=== PATIENT | female | born 1990 | race Caucasian/White ===

== ENCOUNTER 2021-04-11 09:34 | Emergency (ER) | payer OTHER, SELFPAY ==
[2021-04-11 09:50] VITALS: BP 139/80; PULSE 88; RESP 16; TEMP 36.8; O2SAT 100
--- NOTE | 2021-04-11 10:01 | ED.URI ---
HPI - URI/Sore Throat General Chief Complaint: Upper Respiratory Infection Stated Complaint: blisters back of mouth,throat is tender Time Seen by Provider: 04/11/21 09:55 Source: patient, RN notes reviewed and old records reviewed Mode of arrival: ambulatory Limitations: no limitations History of Present Illness HPI Narrative: 30-year-old female who presents to [facility] with complaints of 2 to 3-day duration of sore throat and headaches. Patient states that she had COVID in July and has had some residual headache issues and has had increase in asthma symptoms also. Patient states that she had headache pain increase for the past 2-3 days along with sore throat and decrease appetite. Patient states that she had tonsils removed due to strep and has not had for about 5 years. Patient denies any ear pain, sinus congestion or drainage, denies any known fever, chills, or sweats. MD elicited complaint: sore throat Pertinent past history: asthma, seasonal allergies and other (previous strep) Onset (ago): day(s) (2-3 days) Consistency: progressively worsening Severity: moderate Pain scale (0-10): 6 Able to tolerate fluids by mouth: Yes Exacerbating factors: swallowing Relieving factors: nothing Associated symptoms: headache, sore throat and other (appetitie decreased) Treatments prior to arrival: other (lidocaine spray) Related Data Home Medications Medication Instructions Recorded Confirmed albuterol sulfate [ProAir 90 mcg INHALATION DIRECTED 04/11/21 04/11/21 RespiClick] omeprazole 20 mg PO DAILY 04/11/21 04/11/21 Allergies Allergy/AdvReac Type Severity Reaction Status Date / Time Penicillins Allergy Intermediate Hives Verified 04/11/21 09:52 amoxicillin Allergy Unknown Rash Verified 04/11/21 09:52 egg Allergy Unknown Rash Verified 04/11/21 09:52 Review of Systems Review of Systems: Narrative: CONSTITUTIONAL: Denies fever, chills, or sweats. EYES: Denies visual changes, redness, or discharge. ENT: Denies rhinorrhea, congestion, positive sore throat, no otalgia. CARDIOVASCULAR: Denies chest pain, palpitations, or edema. RESPIRATORY: Denies cough or dyspnea. GASTROINTESTINAL: Denies abdominal pain, nausea, vomiting, or diarrhea. GENITOURINARY: Denies dysuria or hematuria. SKIN: Denies rash or itching. MUSCULOSKELETAL: Denies back pain, joint pain, or myalgia. NEUROLOGIC: Positive headache,no numbness, or weakness. PSYCHIATRIC: Denies anxiety or depression. 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 Surgical History Surgical History (Updated 04/11/21 @ 10:06 by Nayana Kathleen NP) History of tonsillectomy and adenoidectomy S/P wisdom tooth extraction Family History Family History (Updated 04/11/21 @ 10:19 by Nayana Kathleen NP) Grandparent Acute myocardial infarction Breast cancer Hypertension Heart disease Father Hypertension Mother Hypertension Social History Social History (Updated 04/11/21 @ 10:19 by Nayana Kathleen NP) Smoking status: Never smoker Alcohol intake: current Alcohol use details: rare social Substance use: never Living arrangements: with family Gender identity (if verbalized by the patient): Female Comments At time of signature, agree with nursing past medical, surgical, social and family history. There is no relevant family history pertinent to the presenting complaint Exam Narrative: Exam Narrative: GENERAL: Well-appearing, well-nourished, and in no acute distress. HEAD: Normocephalic, atraumatic. EYES: PERRLA and EOMI. ENT: Nares clear, no rhinorrhea or epistaxis. Mucous membranes moist.TM's normal with good light reflex, throat red with blisters noted to right side of back to throat with increase pain with swallowing. NECK: Supple. o lymphadenopathy CHEST: Clear to aus
== END 2021-04-11 10:19 | disposition home or self-care (01) ==
PROVIDERS: Emergency Provider Registered Nurse
DX: J02.0 Streptococcal pharyngitis (principal); J45.909 Unspecified asthma, uncomplicated
CPT/HCPCS: 87880; 99203; G0463